=== PATIENT | female | born 1935 | race Caucasian/White ===

== ENCOUNTER 2017-04-22 14:17 | Emergency (ER) | payer MEDICARE, OTHER ==
[~2017-04-22] VITALS: Ht 160 cm; Wt 68.0 kg
[~2017-04-22 14:17] MED LIST: ESCI10TA PO
[2017-04-22] MEDS ORDERED: ONDANSETRON 4 MG/2 ML VIAL IV ONE (14:30)
[2017-04-22] MEDS ORDERED: MECLIZINE HCL 25 MG TABLET PO ONE (14:30)
[2017-04-22] MEDS ORDERED: IV NORMAL SALINE 500 ML BAG IV ONE (14:30)
[2017-04-22] MEDS ORDERED: LORAZEPAM 2 MG/1 ML VIAL IV ONE (14:30)
[2017-04-22 14:43] LABS: BASOPHILS % (AUTO) 0.4 % (0.0-2.0); EOSINOPHILS % (AUTO) 0.6 % (0.0-7.0); HEMATOCRIT 44.1 % (37-47); HEMOGLOBIN 14.6 G/DL (12.0-16.0); LYMPHOCYTES % (AUTO) 19.2 % (20.5-51.5); MEAN CORPUSCULAR HEMOGLOBIN 28.2 UUG (27.0-31.0); MEAN CORPUSCULAR HGB CONC 33 g/dL (32.0-37.0); MEAN CORPUSCULAR VOLUME 85.4 FL (81.0-99.0); MONOCYTES # (AUTO) 0.3 K/UL (0.1-1.30); MONOCYTES % (AUTO) 6.2 % (0.0-11.0); NEUTROPHILS # (AUTO) 3.7 K/UL (1.8-8.9); NEUTROPHILS % (AUTO) 73.6 % (38.5-71.5); PLATELET COUNT (AUTO) 257 K/UL (150-450); RED BLOOD CELL COUNT(AUTO) 5.17 MIL/UL (4.2-5.4)
[2017-04-22] MEDS ORDERED: ONDANSETRON 4 MG/2 ML VIAL ONE (14:48)
[2017-04-22] MEDS ORDERED: MECLIZINE HCL 25 MG TABLET ONE (14:48)
[2017-04-22] MEDS ORDERED: LORAZEPAM 2 MG/1 ML VIAL ONE (14:49)
[2017-04-22 14:50] LABS: CARBON DIOXIDE 24 mmol/L (21-32); CHLORIDE 104 mmol/L (98-107); CREATININE 0.9 mg/dL (0.6-1.3); GLUCOSE 122 mg/dL (74-106); POTASSIUM 3.6 mmol/L (3.5-5.1); UREA NITROGEN, BLOOD 13 mg/dL (7-18)
--- NOTE | 2017-04-22 15:18 | NUR ---
PT OUT OF ER FOR CT.
[2017-04-22] MEDS ORDERED: ACETAMINOPHEN ES 500 MG TABLET PO ONE (15:45)
[2017-04-22] MEDS ORDERED: ACETAMINOPHEN ES 500 MG TABLET ONE (15:55)
--- NOTE | 2017-04-22 16:20 | NUR ---
PT STOOD AND JWALKED W/O FEELING DIZZY. STATES FELLING BETTER.
--- NOTE | 2017-04-22 16:29 | NUR ---
IV removed. Catheter intact and site benign. Pressure and 4x4 gauze applied to site. No bleeding noted.
--- NOTE | 2017-04-22 16:30 | NUR ---
Patient discharged to home in stable conditon. Written and verbal after care instructions given. Patient verbalizes understanding of instructions.
[2017-04-22 16:44] VITALS: BP 133/70
== END 2017-04-22 16:45 | disposition home or self-care (01) ==
LOC: ER 14:17
DX: R42 Dizziness and giddiness (principal); R51 Headache; R06.00 Dyspnea, unspecified
CPT/HCPCS: 36415; 70450; 71010; 80048; 84484; 85025; 85730; 93005; 96361; 96374; 96375; 99285; A4663; J2060; J2405; J7040; J8597; 70030-TC